=== PATIENT | female | born 1935 | race American Indian/Alaskan Native ===

== ENCOUNTER 2017-11-10 06:29 | Day surgery (SDC) | payer MEDICARE ==
[2017-11-10] MEDS ORDERED: NACL BACTERIOSTATIC INFILTRATI ONE (06:38)
[2017-11-10] MEDS ORDERED: XYLOCAINE MPF 2% ONE (07:06)
[2017-11-10] MEDS ORDERED: DIPRIVAN 10 MG/ML IV ONE (07:06)
[2017-11-10] MEDS ORDERED: DECADRON ONE ×2 (07:06→10:55)
[2017-11-10] MEDS ORDERED: DILAUDID ONE (07:06)
[2017-11-10] MEDS ORDERED: ZOFRAN ONE (07:06)
[2017-11-10] MEDS ORDERED: ROBINUL ONE (07:07)
[2017-11-10] MEDS ORDERED: VERSED IV NR (07:35)
[2017-11-10] MEDS ORDERED: NEO SYNEPHRINE ONE (07:49)
[2017-11-10] MEDS ORDERED: XYLOCAINE 1% 20 mL ONE (07:59)
[2017-11-10] MEDS ORDERED: LACTATED RINGERS 1,000 ML IV SCH (08:00)
[2017-11-10] MEDS ORDERED: ANCEF/STERILE WATER 2 GM/20 ML IV NR (08:00)
[2017-11-10] MEDS ORDERED: XYLOCAINE 1% 20 mL INFILTRATI ONE ×2 (08:22→09:34)
[2017-11-10] MEDS ORDERED: MARCAINE 0.25% INFILTRATI ONE ×2 (09:24→09:34)
--- NOTE | 2017-11-10 09:27 | Short Stay Summary ---
Short Stay Documentation Date of service: 11/10/17 - History H&P: obtained from office - Allergies and Medications Current Medications: Allergies Iodine and Iodide Containing Produc Allergy (Verified 11/09/17 10:34) Hives Home Medications Medication Instructions Recorded Confirmed Last Taken Type Aspirin [Aspirin BABY CHEW TAB] 81 mg PO QDAY 11/09/17 11/10/17 11/03/17 History Bimatoprost [Lumigan] 1 drop OP DAILY 11/09/17 11/09/17 11/09/17 History Cholecalciferol Vit D3 [Vitamin D3] 1,000 unit PO QDAY 11/09/17 11/09/17 History Lovastatin [Altoprev] 40 mg PO QPM 11/09/17 11/09/17 11/09/17 History [place]-3/Dha/Epa/Fish Oil [Fish Oil 1 each PO DAILY 11/09/17 11/09/17 11/09/17 History 1,200 mg Softgel] Sertraline [Zoloft] 50 mg PO DAILY 11/09/17 11/10/17 11/10/17 05:00 History amLODIPine [Norvasc] 10 mg PO DAILY 11/09/17 11/10/17 11/10/17 05:00 History Active Medications Cefazolin Sodium (Ancef/Sterile Water 2 Gm/20 Ml) 2 gm IV PREOP NR Stop: 11/10/17 21:00 Lactated Ringer's (Lactated Ringers) 1,000 mls @ 75 mls/hr IV DIRECT SAM Last Admin: 11/10/17 08:35 Dose: 75 mls/hr Midazolam HCl (Versed) 2 mg IV ONCE NR Stop: 11/10/17 10:00 Last Admin: 11/10/17 08:35 Dose: 2 mg - Brief post op/procedure progress note Date of procedure: 11/10/17 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 Post-op diagnosis: same Procedure: Left needle localization excisional biopsy Anesthesia: GETA Findings: Left wire and clip present within radiograph specimen Surgeon: GARETT BATES Estimated blood loss: minimal Pathology: list (left breast excisional biopsy) Specimen disposition: to lab Condition: stable - Disposition Condition at discharge: Good Disposition: [id number]-01 TO HOME OR SELFCARE Short Stay Discharge Plan Activity: other (no heavy lifting) Diet: regular Wound: other (keep incision clean and dry; may shower in 24 hours; no baths, pools or lakes) Follow up with: ARMANDO VERNON MD [Primary Care Provider] - 7 Days GARETT BATES MD [Staff Physician] - 7 Days Prescriptions: HYDROcodone/APAP 5-325 [[place] 5/325] 1 each PO Q6HR PRN #20 tablet PRN Reason: Pain
[2017-11-10] MEDS ORDERED: WATER FOR IRRIG STERILE IR ONE (09:34)
--- NOTE | 2017-11-10 09:38 | Operative Report ---
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 Recommendations are to proceed with an excisional biopsy to rule out malignancy. Patient wished to proceed with the above procedure Procedure in detail: The patient was taken to radiology for wire placement for localization of area of concern. Patient was then taken to the operating room. Gen. anesthesia was administered. The left breast was prepped and draped in the normal sterile operative fashion. The wire was identified. Timeout was performed. A 6:00 breast incision was made with a 15 blade knife and dissection taken down to subcutaneous tissues. First began raising of the medial flap with removal of the wire from the skin, followed by raising of the lateral flap, superior flap and inferior flap. The breast area of concern was appropriately removed posteriorly immediately anterior to the pectoralis muscle with the aid of the bovie cautery. The wire was not encountered. Specimen was marked and then sent to pathology and radiology; radiograph specimen with wire, calcification and clip present. Breast cavity was irrigated and hemostasis was obtained. The breast cavity was anesthetized with 1% lidocaine mixed with quarter percent Marcaine. The subcutaneous tissues were approximated and closed using interrupted 3-0 Vicryl followed by a running 4-0 Monocryl and skin affix. The patient tolerated surgery very well and she was awaken from anesthesia without any complication and transported to PACU in good condition.
[2017-11-10] MEDS ORDERED: ePHEDrine 50 MG/5 ML-0.9% NACL IV ONE (09:56)
--- NOTE | 2017-11-10 10:01 | Mammography Report ---
NEEDLE LOCALIZATION AND HOOKWIRE PLACEMENT LEFT BREAST:11/10/17 CLINICAL: Left breast cancer for surgical excision. COMPARISON: 09/27/17 [facility] mammogram FINDINGS: Using mammographic guidance, 1% lidocaine local anesthesia and sterile technique, a 7.5-cm Schwartz needle and hookwire was placed from a medial approach to localize a biopsy clip. Satisfactory deployment of the hookwire and removal of the needle. The patient tolerated the procedure well and there were no apparent complications. IMPRESSION: Uncomplicated hookwire placement left breast.
--- NOTE | 2017-11-10 11:56 | Mammography Report ---
SPECIMEN RADIOGRAPH LEFT BREAST: 11/10/17 06:29:00 CLINICAL: Surgical excision of a known cancer. FINDINGS: The targeted mass with a localizer clip and a hookwire are identified within the specimen. IMPRESSION: Excision of the targeted lesion.
[2017-11-10 18:06] VITALS: BP 131/62
== END 2017-11-10 13:20 | disposition home or self-care (01) ==
LOC: OR 06:29
PROVIDERS: ATTEND Surgery
DX: D24.2 Benign neoplasm of left breast (principal); N60.92 Unspecified benign mammary dysplasia of left breast; R92.1 Mammographic calcification found on diagnostic imaging of breast; F41.9 Anxiety disorder, unspecified; K58.9 Irritable bowel syndrome, unspecified; E78.00 Pure hypercholesterolemia, unspecified; I10 Essential (primary) hypertension; M19.90 Unspecified osteoarthritis, unspecified site; Z79.82 Long term (current) use of aspirin; Z91.041 Radiographic dye allergy status; Z90.49 Acquired absence of other specified parts of digestive tract; Z98.890 Other specified postprocedural states
CPT/HCPCS: 19125; 19281; 76098; 88307; J0690; J1100; J1170; J2250; J2370; J2405; J2704; J7120

== ENCOUNTER 2017-11-23 09:26 | Outpatient (CLI) | payer MEDICARE ==
--- NOTE | 2017-11-24 15:14 | Magnetic Resonance Report ---
BILATERAL BREAST MRI WITHOUT AND WITH CONTRAST: 11/23/17 09:26:00 CLINICAL: Status post surgical excision on 11/10/17 after a stereotactic biopsy diagnosis of ADH. Surgical pathology revealed 2 small foci of atypical ductal hyperplasia and was negative for in situ or invasive carcinoma. Papilloma and fibroadenoma or also identified. COMPARISON:09/02/17 bilateral screening mammogram from [facility]. TECHNIQUE: Axial 1.0-mm T1 without, axial high resolution 2.0-mm T2 and axial 1.0-mm dynamic Vibrant high-resolution postcontrast T1 fat saturation sequences on a 1.5 Bisi magnet. The examination was performed with an 8 channel dedicated [place] breast coil. Post processing with CAD and subtraction was performed on an [employer] workstation. 18.0 cc of Multihance was injected without incident for the contrast portion of the exam. Consent was obtained prior to the administration of the contrast. FINDINGS: Right: Minimal background parenchymal enhancement. No mass or suspicious enhancement. No suspicious lymph nodes. Left: Mild background parenchymal enhancement. No mass or suspicious enhancement. An inferior postop seroma at 6 o'clock centered 11.5 cm from the nipple measures approximately 9 cm AP dimension by 5.0 cm transverse dimension by 4.4 cm craniocaudal dimension. Benign enhancement of the wall of the seroma. No suspicious lymph nodes. IMPRESSION: A 9 cm benign postop seroma of the left breast and no suspicious finding of either breast. RIGHT BI-RADS 1 -- Negative LEFT BI-RADS 2 -- Benign
== END 2017-11-23 09:27 | disposition home or self-care (01) ==
LOC: SPVIMAG 09:26
PROVIDERS: ATTEND Surgery
DX: N60.82 Other benign mammary dysplasias of left breast (principal); N64.89 Other specified disorders of breast; Z88.3 Allergy status to other anti-infective agents
CPT/HCPCS: A9577; C8908; 77059

== ENCOUNTER 2018-10-11 15:11 | Outpatient (CLI) | payer MEDICARE ==
--- NOTE | 2018-10-11 15:51 | Mammography Report ---
BILATERAL DIGITAL SCREENING MAMMOGRAM with CAD : 10/11/18 15:11:00 CLINICAL: Routine screening.Status post left benign surgical excision for ADH 11/10/17 COMPARISON:09/27/17 and 09/02/17 FINDINGS: The breasts are heterogeneously dense, which may obscure small masses.Left breast is smaller than the right with inferior benign scar. Bilateral benign calcifications, some of which are arterial. No mass, suspicious architectural distortion or suspicious calcifications. IMPRESSION: No mammographic evidence of malignancy. BI-RADS CATEGORY: 2 -- Benign RECOMMENDATION: Routine mammographic screening in one year. COMMENT: Patient follow-up letters are generated by our [employer] application.
== END 2018-10-11 15:12 | disposition home or self-care (01) ==
LOC: SPVWC 15:11
PROVIDERS: ATTEND Surgery
DX: Z12.31 Encounter for screening mammogram for malignant neoplasm of breast (principal); E78.00 Pure hypercholesterolemia, unspecified; I10 Essential (primary) hypertension; Z90.89 Acquired absence of other organs
CPT/HCPCS: 77067